=== PATIENT | female | born 1990 | race Caucasian/White ===

== ENCOUNTER → 2019-11-12 | Outpatient (REF) | payer OTHER | LOC: M LAB LCGH 12:36 | PROVIDERS: ATTEND Obstetrics & Gynecology | DX: Z30.2 Encounter for sterilization (principal) ==

== ENCOUNTER → 2024-02-05 | Outpatient (REF) | payer OTHER | LOC: M SFHCRHEU 16:40 | PROVIDERS: ATTEND Internal Medicine Rheumatology | DX: M35.3 Polymyalgia rheumatica (principal); H04.123 Dry eye syndrome of bilateral lacrimal glands ==